=== PATIENT | female | born 2005 | race Caucasian/White ===

== ENCOUNTER 2024-04-16 10:54 | Outpatient (CLI) | payer MEDICAID, SELFPAY ==
[2024-04-16 11:51] LABS: HCG,Quantitative 77 mIU/ml (0-5.42)
[2024-04-17 08:28] LABS: Progesterone 15.4 ng/mL (.)
== END 2024-04-16 23:59 | disposition home or self-care (01) ==
PROVIDERS: PCP Pediatrics; Visit Provider Obstetrics & Gynecology
DX: O26.891 Other specified pregnancy related conditions, first trimester (principal); Z3A.01 Less than 8 weeks gestation of pregnancy
CPT/HCPCS: 36415; 84144; 84702

== ENCOUNTER 2024-04-18 08:45 | Outpatient (CLI) | payer MEDICAID, SELFPAY ==
[2024-04-18 09:44] LABS: HCG,Quantitative 199 mIU/ml (0-5.42)
== END 2024-04-18 23:59 | disposition home or self-care (01) ==
LOC: LAB 08:45
PROVIDERS: PCP Pediatrics; Visit Provider Obstetrics & Gynecology
DX: Z32.00 Encounter for pregnancy test, result unknown (principal)
CPT/HCPCS: 36415; 84702

== ENCOUNTER 2024-05-06 10:44 | Outpatient (CLI) | payer MEDICAID, SELFPAY ==
[2024-05-06 12:08] LABS: HCG,Quantitative 2080 mIU/ml (0-5.42)
[2024-05-07 08:18] LABS: Progesterone 1.7 ng/mL (.)
== END 2024-05-06 23:59 | disposition home or self-care (01) ==
LOC: LAB 10:45
PROVIDERS: PCP Pediatrics; Visit Provider Obstetrics & Gynecology
DX: O20.9 Hemorrhage in early pregnancy, unspecified (principal); Z3A.01 Less than 8 weeks gestation of pregnancy
CPT/HCPCS: 36415; 84144; 84702; 86900; 86901

== ENCOUNTER 2024-05-07 08:48 | Outpatient (CLI) | payer MEDICAID, SELFPAY ==
--- NOTE | 2024-05-07 09:03 | US_ITS ---
PROCEDURE: US OB <= 14 WEEKS FETUS CLINICAL INDICATION: vaginal bleeding in early COMPARISON: No exams were available for comparison FINDINGS: Transvaginal sonographic images of the pelvis were obtained. From her last menstrual period she is 7weeks 4days. An intrauterine gestational sac is absent. heart tones are absent. Yolk sac is not seen. In the lower uterine segment and cervix there appears to be tissue as well as blood clot. The right ovary is seen and appears normal. The left ovary is seen and appears normal. There are multiple small follicles within the left ovary. There is no fluid in the cul-de-sac. IMPRESSION: 1. Likely missed with tissue and blood clot in the lower uterine segment and cervix. 2. A gestational sac is not seen. 3. Both ovaries are seen and appear normal. 4. No fluid in the cul-de-sac. Dictated by: Michael Freed MD 05/07/2024 11:16 Michael Freed MD in OV 05/07/2024 11:16
== END 2024-05-07 23:59 | disposition home or self-care (01) ==
LOC: RAD 08:49
PROVIDERS: PCP Obstetrics & Gynecology; Visit Provider Obstetrics & Gynecology
DX: O20.9 Hemorrhage in early pregnancy, unspecified (principal); Z3A.01 Less than 8 weeks gestation of pregnancy
CPT/HCPCS: 76801

== ENCOUNTER 2024-05-08 08:49 | Outpatient (CLI) | payer MEDICAID, SELFPAY ==
[2024-05-08 11:52] LABS: HCG,Quantitative 389 mIU/ml (0-5.42)
== END 2024-05-08 23:59 | disposition home or self-care (01) ==
LOC: LAB 08:50
PROVIDERS: PCP Pediatrics; Visit Provider Nurse Practitioner Obstetrics & Gynecology
DX: O20.9 Hemorrhage in early pregnancy, unspecified (principal); Z3A.01 Less than 8 weeks gestation of pregnancy
CPT/HCPCS: 36415; 84702

== ENCOUNTER 2024-05-09 11:30 | Outpatient (CLI) | payer MEDICAID, SELFPAY ==
[2024-05-09 12:05] LABS: Basophils # 0.1 K/mm3 (0-0.2); Basophils % 0.6 % (0.1-2.0); Eosinophils # 0.1 K/mm3 (0.0-0.4); Hematocrit 39.4 % (37.0-47.0); Hemoglobin 12.9 g/dL (12.2-16.2); Lymphocytes # 2.1 K/mm3 (0.7-4.5); Lymphocytes % 25.3 % (10-50); Mean Corpuscular HGB Conc 32.7 g/dL (31.8-35.4); Mean Corpuscular Hemoglobin 30.2 pg (27.0-31.2); Mean Corpuscular Volume 92.2 fl (81-99); Mean Platelet Volume 9.1 fl (7.4-10.4); Monocytes # 0.5 K/mm3 (0.1-1.0); Monocytes % 5.5 % (1.7-9.3); Neutrophils # 5.5 K/mm3 (1.8-7.8); Neutrophils % 67.5 % (37.0-80.0); Platelet Count 232 K/mm3 (142-424); Red Blood Count 4.28 M/mm3 (4.20-5.40); Red Cell Distribution Width 13.8 % (11.5-17.5); White Blood Count 8.2 K/mm3 (4.5-13.0)
== END 2024-05-09 23:59 | disposition home or self-care (01) ==
PROVIDERS: PCP Pediatrics; Visit Provider Obstetrics & Gynecology
DX: O03.9 Complete or unspecified spontaneous abortion without complication (principal)
CPT/HCPCS: 36415; 85025

== ENCOUNTER 2025-06-10 12:16 | Outpatient (CLI) | payer MEDICAID, SELFPAY ==
--- OUTSIDE RECORDS SUMMARY | 2025-05-07 09:30 | XMS_ITS | Encounter Summary ---
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 Name Role Phone Ventura Corona MD Primary Care Provider [phone] Reason for Visit * Reason Comments Annual Exam Encounter Details Date Type Department Care Team (Late st Contact Info) Description 05/07/2025 9:30 AM EDT Office Visit [facility] [address] [place] [address] Ventura Corona MD [address] [place] [address] [place] [address] Encounter for general adult medical examination with abnormal findings (Primary Dx); Anxiety and depression; Class 1 obesity due to excess calories without serious comorbidity with body mass index (BMI) of 33.0 to 33.9 in adult; Other fatigue; Seasonal allergic rhinitis due to pollen Social History Tobacco Use Types Packs/Day Years Used Date Smoking Tobacco: Never Smokeless Tobacco: Never Tobacco Cessation:Counseling Given: No Alcohol Use Standard Drinks/Week Comments Never 0 (1 standard drink = 0.6 oz pur e alcohol) AUDIT-C Answer Date Recorded Q1: How often do you have a drink containing alcohol? Never 11/03/2022 Q2: How many drinks containi ng alcohol do you have on a typical day when you are drinking? Patient does not drink Q3: How often do you have si x or more drinks on one occasion? Never 11/03/2022 PHQ-2 Answer Date Recorded Retired PHQ-9: Brief Depression Severity Measure Score 0 03/08/2023 [employer] Depression Scale Answer Date Recorded Retired [employer] Depression Score 0 12/16/2022 Retired EPD Scale: Thought of Harming Self Unrec ognized value 12/16/2022 Abuse Screen Answer Date Recorded Feels Unsafe at Home or Work/School no 11/03/2022 Feels Threatened by Someone no 10/20 Does Anyone Try to Keep You From Having Contact with Others or Doing Things Outside Your Home? no 11/03/2022 Physical Signs of Abuse Present no 11/03/2022 Housing Stability Answer Date Recorded Current Living Arrangements home 10/20 Potentially Unsafe Housing Conditions Not on marshal e 11/03/2022 Disabilities Answer Date Recorded Difficulty Concentrating, Remembering or Making Decisions no 11/03/2022 Difficulty Managing Errands Independently no 11/03/2022 PHQ-2 Answer Date Recorded Patient Health Questionnaire-2 Score 0 05/07/2025 Comments No Sex and Gender Information Value Date Recorded Sex Assigned at Not on file Legal Sex Female 8:10 AM EDT Gender Identity Not on file Sexual Orientation Not on file 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 Not on file Not on file Not on file documented as of this encounter Last Filed Vital Signs Vital Sign Reading Time Taken Comments Blood Pressure 110/70 05/07/2025 9:36 AM EDT Pulse 79 05/07/2025 9:36 AM EDT Temperature 37 C (98.6 F) 05/07/2025 9:36 AM EDT Respiratory Rate - - Oxygen Saturation 97% 05/07/2025 9:36 AM EDT Inhaled Oxygen Concentration - - Weight 83.6 kg (184 lb 6 oz) 05/07/2025 9:36 AM EDT Height 157.5 cm (5' 2 ) 05/07/2025 9:36 AM EDT Body Mass Index 33.72 05/07/2025 9:36 AM EDT documented in this encounter Functional Status documented as of this encounter Patient Instructions * Patient Instructions* Ventura Corona MD - 05/07/2025 9:30 AM EDT Health Maintenance, Female Adopting a healthy lifestyle and getting preventive care can go a long way to promote health and wellness. Talk with your health care provider about what schedule of regular examinations is right foryou. This is a good chance for you to check in with your provider about disease prevention and staying healthy. In between checkups, there are plenty of things you can do on your own. Experts have done a lot of research about which lifestyle changes and preventive measures are most likely to keep you healthy. Ask your health care provider for more information. Weight and diet Eat a healthy diet Be sure to include plenty of vegetables, fruits, low-fat dairy products, and lean protein. Do not eat a lot of foods high in solid fats, added sugars, or salt. Get regular exercise. This is one of the most important things you can do for your health. Most adults should exercise for at least 150 minutes each week. The exercise should increase your heart rate and make you sweat (moderate-intensity exercise). Most adults should also do strengthening exercises at least twice a week. This is in addition to the moderate-intensity exercise. Maintain a healthy weight Body mass index (BMI) is a measurement that can be used to identify possible weight problems. It estimates body fat based on height and weight. Your health care provider can help determine your BMI and help you achieve or maintain a healthy weight. For females 20 years of age and older: A BMI below 18.5 is considered underweight. A BMI of 18.5 to 24.9 is normal. A BMI of 25 to 29.9 is considered overweight. A BMI of 30 and above is considered obese. Watch levels of cholesterol and blood lipids You should start having your blood tested for lipids and cholesterol at 20 years of age, then have this test every 5 years. You may need to have your cholesterol levels checked more often if: Your lipid or cholesterol levels are high. You are older than 50 years of age. You are at high risk for heart disease. Cancer screening Lung Cancer Lung cancer screening is recommended for adults 55-80 years old who are at high risk for lung cancer because of a history of smoking. A yearly low-dose CT scan of the lungs is recommended for people who: Currently smoke. Have quit within the past 15 years. Have at least a [id number] history of smoking. A pack year is smoking an average of one pack of cigarettes a day for 1 year. Yearly screening should continue until it has been 15 years since you quit. Yearly screening should stop if you develop a health problem that would prevent you from having lung cancer treatment. Breast Cancer Practice breast self-awareness. This means understanding how your breasts normally appear and feel. It also means doing regular breast self-exams. Let your health care provider know about any changes, no matter how small. If you are in your 20s or 30s, you should have a clinical breast exam (CBE) by a health care provider every 1-3 years as part of a regular health exam. If you are 40 or older, have a CBE every year. Also consider having a breast X- ray (mammogram) every year. If you have a family history of breast cancer, talk to your health care provider about genetic screening. If you are at high risk for breast cancer, talk to your health care provider about having an MRI and a mammogram every year. Breast cancer gene (BRCA) assessment is recommended for women who have family members with BRCA-related cancers. BRCA-related cancers include: Breast. Ovarian. Tubal. Peritoneal cancers. Results of the assessment will determine the need for genetic counseling and BRCA1 and BRCA2 testing. Cervical Cancer Your health care provider may recommend that you be screened regularly for cancer of the pelvic organs (ovaries, uterus, and vagina). This screening involves a pelvic examination, including checking for microscopic changes to the surface of your cervix (Pap test). You may be encouraged to have thisscreening done every 3 years, beginning at age 21. For women ages 30-65, health care providers may recommend pelvic exams and Pap testing every 3 years, or they may recommend the Pap and pelvic exam, combined with testing for human papilloma virus (HPV), every 5 years. Some types of HPV increase your risk of cervical cancer. Testing for HPV may also be done on women of any age with unclear Pap test results. Other health care providers may not recommend any screening for non women who are considered low risk for pelvic cancer and who do not have symptoms. Ask your health care provider if a screening pelvic exam is right for you. If you have had past treatment for cervical cancer or a condition that could lead to cancer, you need Pap tests and screening for cancer for at least 20 years after your treatment. If Pap tests have been discontinued, your risk factors (such as having a new sexual partner) need to be reassessed to determine if screening should resume. Some women have medical problems that increase the chance of getting cervical cancer. In these cases, your health care provider may recommend more frequent screening and Pap tests. Colorectal Cancer This type of cancer can be detected and often prevented. Routine colorectal cancer screening usually begins at 50 years of age and continues through 75 years of age. Your health care provider may recommend screening at an earlier age if you have risk factors for colon cancer. Your health care provider may also recommend using home test kits to check for hidden blood in the stool. A small camera at the end of a tube can be used to examine your colon directly (sigmoidoscopy or colonoscopy). This is done to check for the earliest forms of colorectal cancer. Routine screening usually begins at age 50. Direct examination of the colon should be repeated every 5-10 years through 75 years of age. However, you may need to be screened more often if early forms of precancerous polyps or small growths arefound. Skin Cancer Check your skin from head to toe regularly. Tell your health care provider about any new moles or changes in moles, especially if there is a change in a mole's shape or color. Also tell your health care provider if you have a mole that is larger than the size of a pencil eraser. Always use sunscreen. Apply sunscreen liberally and repeatedly throughout the day. Protect yourself by wearing long sleeves, pants, a wide-brimmed hat, and sunglasses whenever you are outside. Heart disease, diabetes, and high blood pressure High blood pressure causes heart disease and increases the risk of stroke. High blood pressure is more likely to develop in: People who have blood pressure in the high end of the normal range (130-139/85-89 mm Hg). People who are overweight or obese. People who are . If you are 18-39 years of age, have your blood pressure checked every 3-5 years. If you are 40 years of age or older, have your blood pressure checked every year. You should have your blood pressure measured twice--once when you are at a hospital or clinic, and once when you are not at a hospital or clinic. Record the average of the two measurements. To check your blood pressure when you are not at a hospital or clinic, you can use: An automated blood pressure machine at a pharmacy. A home blood pressure monitor. If you are between 55 years and 79 years old, ask your health care provider if you should take aspirin to prevent strokes. Have regular diabetes screenings. This involves taking a blood sample to check your fasting blood sugar level. If you are at a normal weight and have a low risk for diabetes, have this test once every three years after 45 years of age. If you are overweight and have a high risk for diabetes, consider being tested at a younger age or more often. Preventing infection Hepatitis B If you have a higher risk for hepatitis B, you should be screened for this virus. You are considered at high risk for hepatitis B if: You were born in a country where hepatitis B is common. Ask your health care provider which countries are considered high risk. Your parents were born in a high-risk country, and you have not been immunized against hepatitis B (hepatitis B vaccine). You have HIV or AIDS. You use needles to inject street drugs. You live with someone who has hepatitis B. You have had sex with someone who has hepatitis B. You get hemodialysis treatment. You take certain medicines for conditions, including cancer, organ transplantation, and autoimmune conditions. Hepatitis C Blood testing is recommended for: Everyone born from 1945 through 1965. Anyone with known risk factors for hepatitis C. Sexually transmitted infections (STIs) You should be screened for sexually transmitted infections (STIs) including gonorrhea and chlamydiaif: You are sexually active and are younger than 24 years of age. You are older than 24 years of age and your health care provider tells you that you are at risk forthis type of infection. Your sexual activity has changed since you were last screened and you are at an increased risk for chlamydia or gonorrhea. Ask your health care provider if you are at risk. If you do not have HIV, but are at risk, it may be recommended that you take a prescription medicine daily to prevent HIV infection. This is called pre- exposure prophylaxis (PrEP). You are consideredat risk if: You are sexually active and do not regularly use condoms or know the HIV status of your partner(s). You take drugs by injection. You are sexually active with a partner who has HIV. Talk with your health care provider about whether you are at high risk of being infected with HIV. If you choose to begin PrEP, you should first be tested for HIV. You should then be tested every 3 months for as long as you are taking PrEP. If you are premenopausal and you may become , ask your health care provider about preconception counseling. If you may become , take 400 to 800 micrograms (mcg) of folic acid every day. If you want to prevent , talk to your health care provider about control (contraception). Osteoporosis and menopause Osteoporosis is a disease in which the bones lose minerals and strength with aging. This can resultin serious bone fractures. Your risk for osteoporosis can be identified using a bone density scan. If you are 65 years of age or older, or if you are at risk for osteoporosis and fractures, ask yourhealth care provider if you should be screened. Ask your health care provider whether you should take a calcium or vitamin D supplement to lower your risk for osteoporosis. Menopause may have certain physical symptoms and risks. Hormone replacement therapy may reduce some of these symptoms and risks. Talk to your health care provider about whether hormone replacement therapy is right for you. Follow these instructions at home: Schedule regular health, dental, and eye exams. Stay current with your immunizations. Do not use any tobacco products including cigarettes, chewing tobacco, or electronic cigarettes. If you are , do not drink alcohol. If you are , limit how much and how often you drink alcohol. Limit alcohol intake to no more than 1 drink per day for non women. One drink equals 12 ounces of beer, 5 ounces of wine, or 1?? ounces of hard liquor. Do not use street drugs. Do not share needles. Ask your health care provider for help if you need support or information about quitting drugs. Tell your health care provider if you often feel depressed. Tell your health care provider if you have ever been abused or do not feel safe at home. This information is not intended to replace advice given to you by your health care provider. Make sure you discuss any questions you have with your health care provider. Document Released: 05/21/2012 Document Revised: 04/13/2017 Document Reviewed: 08/09/2016 [employer] Interactive Patient Education ?? 2018 [place]. documented in this encounter Progress Notes * Ventura Corona MD - 05/07/2025 10:57 AM EDTAssociated Problem(s): Seasonal allergic rhinitis due to pollen Seasonal pattern of allergies typically flaring more spring and summer than fall, less in the winter. Good response to Claritin and Flonase as needed, using currently with benefit and not typically having breakthrough symptoms. We could consider adding montelukast in the future for any breakthroughsymptoms. Additional benefit of saline spray, nasal flushing. Advise concerns. * Ventura Corona MD - 05/07/2025 10:57 AM EDTAssociated Problem(s): Encounter for general adult medical examination with abnormal findings No cardiac problems known. Mild intermittent asthma. Childhood vaccinations up-to-date and given with notable Tdap given 08/16/2022. Screening blood work 02/05/2025, with additional 03/22/2022 negative HIV and hepatitis C virus screening. 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 * Ventura Corona MD - 05/07/2025 10:55 AM EDTAssociated Problem(s): Class 1 obesity due to excess calories without serious comorbidity with bodymass index (BMI) of 32.0 to 32.9 in adult Gradually increasing weight over the preceding year, with another 7 pound weight gain since her visit a few months ago despite efforts to eat healthier and be more active. She feels it is hard to maintain. GLP-1 class discussed but is not covered by insurance, phentermine discussed and now that sheis having control of her mood and anxiety she would like to proceed. Initiate phentermine 37.5 mg and half tablet in the morning half tablet midday, caution jitteriness, anxiety exacerbation. Use forup to 3 maybe 4 months depending how she responds, with monthly follow-ups. Reinforced importance of healthy diet, exercise and weight loss. Notable for reassuring blood work from 02/05/2025 includingnormal TSH. Follow-up in 1 month, sooner as needed. * Ventura Corona MD - 05/07/2025 10:54 AM EDTAssociated Problem(s): Anxiety and depression History of more anxiety type symptoms, but as of 02/05/2025 some gradual increase in more anxiety than depressive type symptoms, but becoming bothersome in life. Some associate fatigue felt related the same with reassuring blood work on 02/05/2025. She was interested in medicine, previously benefit with Celexa but we discussed that Lexapro might give her even further benefit, but she would be interested in Lexapro. Initiation on 02/05/2025 Lexapro 10 mg daily, which she tolerated well without any side effects. She is pleased with how she is doing as of 05/07/2025 we will continue unchanged. Continue lifestyle modifications to benefit mood including regular exercise, pursuit of enjoyable activities, improved communication and she has pending counseling at the end of the month. Reassess at follow-up visit. * Ventura Corona MD - 05/07/2025 9:34 AM EDTAssociated Problem(s): Other fatigue Nonspecific fatigue more of a burned-out sensation , not a muscular fatigue and not a sleepiness pattern. [place] it be most likely related to her ongoing mood difficulties, discussed as per that assessment plan. Nonetheless reassuring evaluation for screening blood work on 02/05/2025 including notably normal CBC for screening of anemia, and also normal TSH for thyroid function. Such as fatigue is felt more related to mood difficulties which is improving with treatment. * Ventura Corona MD - 05/07/2025 9:30 AM EDT Images from the original note were not included. Female Physical Note Date: 05/07/2025 Patient Name: Jayson Adler : 2005 Chief Complaint Patient presents with Annual Exam History of Present Illness: Jayson Adler is a 20 y.o. female who is here today for theirannual health maintenance and physical. Discussed multimedical problems and other new concerns. Regarding anxiety more so than depressive symptoms, resumption of medicine with Lexapro 10 mg daily a few months ago on 02/05/2025 and she has seen good benefit, she feels more lax, handle stressors better just generally is feeling better. No SI/HI. She would like to continue unchanged. Previous sense of fatigue is also improving with his treatment, laboratory vesication from 02/05/2025 reassuring. Allergies are flaring up a bit but she is using her Claritin and Flonase with benefit. Regarding obesity pattern despite attempts to eat healthier and be more active, she still struggling is actually hadabout 7 pound weight gain since her last visit. We discussed previously phentermine but wanted to hold off on until anxiety and depression are better controlled and are doing better now she would be interested in pursuing. Subjective Review of Systems Past Medical History, Social History, Family History and Care Team were all reviewed with patient and updated as appropriate. Current Outpatient Medications: escitalopram (Lexapro) 10 MG tablet, Take 1 tablet by mouth Daily., Disp: 90 tablet, Rfl: 1 fluticasone (FLONASE) 50 MCG/ACT nasal spray, Administer 2 sprays into the nostril(s) as directed by provider Daily., Disp: 15.8 g, Rfl: 3 loratadine (Claritin) 10 MG tablet, Take 1 tablet by mouth Daily., Disp: 30 tablet, Rfl: 1 phentermine (Adipex-P) 37.5 MG tablet, Take 0.5 tablets by mouth 2 (Two) Times a Day., Disp: 30 tablet, Rfl: 0 Allergies Allergen Reactions Sulfa Antibiotics Hives Health Maintenance Summary Current Care Gaps COVID-19 Vaccine () Overdue since 07/21/2024 03/08/2023 Postponed until 04/17/2023 by Anitra Gallegos MA (Pending event) 12/07/2021 Imm Admin: COVID-19 (PFIZER) Purple Cap Monovalent 10/25/2021 Imm Admin: COVID-19 (PFIZER) Purple Cap Monovalent CHLAMYDIA SCREENING (Yearly) Overdue since 02/05/2025 02/06/2024 Chlamydia trachomatis, JULIENNE component of Chlamydia trachomatis, Neisseria gonorrhoeae, Trichomonas vaginalis, PCR - Swab, Cervix 08/01/2022 Chlamydia trachomatis, JULIENNE component of NuSwab VG+ - Swab, Vagina 03/22/2022 Chlamydia trachomatis, JULIENNE component of Chlamydia trachomatis, Neisseria gonorrhoeae, PCR w/ confirmation - Urine, Urine, Clean Catch 01/27/2022 Chlamydia trachomatis, JULIENNE component of Chlamydia trachomatis, Neisseria gonorrhoeae, PCR w/ confirmation - Swab, Vagina 10/25/2021 Chlamydia trachomatis, JULIENNE component of Chlamydia trachomatis, Neisseria gonorrhoeae, Trichomonas vaginalis, PCR - , Cervix Only the first 5 history entries have been loaded, but more history exists. ANNUAL PHYSICAL (Yearly) Never done 03/08/2023 Postponed until 06/07/2023 by Anitra Gallegos MA (Pending event) MENINGOCOCCAL B VACCINE (1 of 2 - Standard) Never done No completion, postpone, or frequency change history exists for this topic. PAP SMEAR (Every 3 Years) Never done No completion, postpone, or frequency change history exists for this topic. Upcoming INFLUENZA VACCINE (Yearly - May to January) Next due on 05/20/2025 No completion, postpone, or frequency change history exists for this topic. LIPID PANEL (Yearly) Next due on 02/05/2026 02/05/2025 Lipid Panel TDAP/TD VACCINES (3 - Td or Tdap) Next due on 08/16/2032 08/16/2022 Imm Admin: Tdap 04/21/2015 Imm Admin: Tdap Completed or No Longer Recommended HEPATITIS C SCREENING Completed 03/22/2022 Hep C Virus Ab component of Obstetric Panel HPV VACCINES (Series Information) Completed 03/08/2023 Postponed until 03/08/2023 by Anitra Gallegos MA (Pending event) 01/03/2018 Imm Admin: Hpv9 06/30/2017 Imm Admin: Hpv9 Pneumococcal Vaccine 0-49 (Series Information) Aged Out No completion, postpone, or frequency change history exists for this topic. MENINGOCOCCAL VACCINE (Series Information) Aged Out 03/08/2023 Postponed until 03/08/2023 by Anitra Gallegos MA (Pending event) 04/21/2015 Imm Admin: MCV4 Unspecified Immunization History Administered Date(s) Administered COVID-19 ([employer]) Purple Cap Monovalent 10/25/2021, 12/07/2021 DTaP, Unspecified 2004, 2004, 2004, 05/09/2007, 06/02/2008 Hep A, 2 Dose 06/30/2017, 01/03/2018 Hep B, Adolescent or Pediatric 2004, 2004, 2004 HiB 2004, 2004, 2004 Hpv9 06/30/2017, 01/03/2018 IPV 2004, 2004, 03/16/2005, 06/02/2008 MCV4 Unspecified 04/21/2015 MMR 05/09/2007, 06/02/2008 Tdap 04/21/2015, 08/16/2022 Varicella 05/09/2007, 06/02/2008 Colorectal Screening: Last Completed Colonoscopy This patient has no relevant Health Maintenance data. Pap: Last Completed Pap Smear This patient has no relevant Health Maintenance data. Mammogram: Last Completed Mammogram This patient has no relevant Health Maintenance data. CT for Smoker (Age 50-80, 20 pk yr): Not applicable Bone Density/DEXA (Age 65 or high risk): Not applicable. Hep C (Age 18-79 once): Negative on 03/22/2022 HIV (Age 15-65 once): Negative on 03/22/2022 A1c: Hemoglobin A1C Date Value Ref Range Status 02/05/2025 5.1 4.8 - 5.6 % Final Comment: Prediabetes: 5.7 - 6.4 Diabetes: >6.4 Glycemic control for adults with diabetes: <7.0 Lipid panel: No results found for: LIPIDEXCLUSI The ASCVD Risk score ([place] DK, et al., 2019) failed to calculate for the following reasons: The 2019 ASCVD risk score is only valid for ages 40 to 79 Tobacco Use: Low Risk (05/07/2025) Patient History Smoking Tobacco Use: Never Smokeless Tobacco Use: Never Passive Exposure: Not on file Social History Substance and Sexual Activity Alcohol Use Never Social History Substance and Sexual Activity Drug Use Never Diet/Physical activity: Attempts to eat healthier and be active, she is doing quite well with the diet but exercise is a bit of a challenge but still making efforts to improve but unfortunately no weight loss and actually weight gain Social History Substance and Sexual Activity Sexual Activity Yes Partners: Male control/protection: None No LMP recorded (lmp unknown). Depression: PHQ-2 Depression Screening PHQ-9 Depression Screening Little interest or pleasure in doing things? Not at all Feeling down, depressed, or hopeless? Not at all PHQ-2 Total Score 0 Trouble falling or staying asleep, or sleeping too much? Feeling tired or having little energy? Poor appetite or overeating? Feeling bad about yourself - or that you are a failure or have let yourself or your family down? Trouble concentrating on things, such as reading the newspaper or watching television? Moving or speaking so slowly that other people could have noticed? Or the opposite - being so fidgety or restless that you have been moving around a lot more than usual? Thoughts that you would be better off , or of hurting yourself in some way? PHQ-9 Total Score If you checked off any problems, how difficult have these problems made it for you to do your work,take care of things at home, or get along with other people? Not difficult at all Intimate partner violence: (Screen on initial visit, women, women with injuries, older adult with injury or evidence of neglect): Violence can be a problem in many people's lives, so I now ask every patient about trauma or abuse they may have experienced in a relationship. Stress/Safety - Do you feel safe in your relationship? Afraid/Abused - Have you ever been in a relationship where you were threatened, hurt, or afraid? Friend/Family - Are your friends aware you have been hurt? Emergency Plan - Do you have a safe place to go and the resources you need in an emergency? Osteoporosis: Ost menopausal women < 65 with RF (advancing age, previous fracture, glucocorticoid therapy, parental hip fracture, low body weight, current cigarette smoking, excessive alcohol consumption, rheumatoid arthritis, secondary osteoporosis [hypogonadism/premature menopause, malabsorption, chronic liver disease, IBD]). All women 65 or older Objective Physical Exam: Vitals: 05/07/25 0936 BP: 110/70 BP Location: Right arm Patient Position: Sitting Cuff Size: Adult Pulse: 79 Temp: 98.6 ??F (37 ??C) TempSrc: Temporal SpO2: 97% Weight: 83.6 kg (184 lb 6 oz) Height: 157.5 cm (62 ) PainSc: 0-No pain Facility age limit for growth %karli is 20 years. Body mass index is 33.72 kg/m??. Physical Exam Constitutional: General: She is not in acute distress. Appearance: Normal appearance. She is obese. She is not ill-appearing, toxic- appearing or diaphoretic. HENT: Head: Normocephalic and atraumatic. Right Ear: Tympanic membrane, ear canal and external ear normal. Left Ear: Tympanic membrane, ear canal and external ear normal. Nose: Rhinorrhea present. Comments: Mild clear rhinorrhea, pale mucosa Mouth/Throat: Mouth: Mucous membranes are moist. Pharynx: Oropharynx is clear. No oropharyngeal exudate or posterior oropharyngeal erythema. Eyes: Extraocular Movements: Extraocular movements intact. Conjunctiva/sclera: Conjunctivae normal. Pupils: Pupils are equal, round, and reactive to light. Neck: Vascular: No carotid bruit. Cardiovascular: Rate and Rhythm: Normal rate and regular rhythm. Pulses: Normal pulses. Heart sounds: Normal heart sounds. No murmur heard. No friction rub. No gallop. Pulmonary: Effort: Pulmonary effort is normal. No respiratory distress. Breath sounds: Normal breath sounds. No stridor. No wheezing. Abdominal: General: Abdomen is flat. Bowel sounds are normal. There is no distension. Palpations: Abdomen is soft. There is no mass. Tenderness: There is no abdominal tenderness. There is no guarding or rebound. Hernia: No hernia is present. Genitourinary: Comments: Declined by patient as she plans to obtain through gynecology Musculoskeletal: Cervical back: Neck supple. No tenderness. Right lower leg: No edema. Left lower leg: No edema. Lymphadenopathy: Cervical: No cervical adenopathy. Skin: General: Skin is warm and dry. Capillary Refill: Capillary refill takes less than 2 seconds. Findings: No rash. Neurological: General: No focal deficit present. Mental Status: She is alert and oriented to person, place, and time. Mental status is at baseline. Motor: No weakness. Gait: Gait normal. Psychiatric: Mood and Affect: Mood normal. Behavior: Behavior normal. Thought Content: Thought content normal. Judgment: Judgment normal. Procedures Assessment / Plan Assessment/Plan: Diagnoses and all orders for this visit: 1. Encounter for general adult medical examination with abnormal findings (Primary) Assessment & Plan: No cardiac problems known. Mild intermittent asthma. Childhood vaccinations up-to-date and given with notable Tdap given 08/16/2022. Screening blood work 02/05/2025, with additional 03/22/2022 negative HIV and hepatitis C virus screening. 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 2. Anxiety and depression Assessment & Plan: History of more anxiety type symptoms, but as of 02/05/2025 some gradual increase in more anxiety than depressive type symptoms, but becoming bothersome in life. Some associate fatigue felt related the same with reassuring blood work on 02/05/2025. She was interested in medicine, previously benefit with Celexa but we discussed that Lexapro might give her even further benefit, but she would be interested in Lexapro. Initiation on 02/05/2025 Lexapro 10 mg daily, which she tolerated well without any side effects. She is pleased with how she is doing as of 05/07/2025 we will continue unchanged. Continue lifestyle modifications to benefit mood including regular exercise, pursuit of enjoyable activities, improved communication and she has pending counseling at the end of the month. Reassess at follow-up visit. Orders: - escitalopram (Lexapro) 10 MG tablet; Take 1 tablet by mouth Daily. Dispense: 90 tablet; Refill: 1 3. Class 1 obesity due to excess calories without serious comorbidity with body mass index (BMI) of33.0 to 33.9 in adult Assessment & Plan: Gradually increasing weight over the preceding year, with another 7 pound weight gain since her visit a few months ago despite efforts to eat healthier and be more active. She feels it is hard to maintain. GLP-1 class discussed but is not covered by insurance, phentermine discussed and now that sheis having control of her mood and anxiety she would like to proceed. Initiate phentermine 37.5 mg and half tablet in the morning half tablet midday, caution jitteriness, anxiety exacerbation. Use forup to 3 maybe 4 months depending how she responds, with monthly follow-ups. Reinforced importance of healthy diet, exercise and weight loss. Notable for reassuring blood work from 02/05/2025 includingnormal TSH. Follow-up in 1 month, sooner as needed. Orders: - phentermine (Adipex-P) 37.5 MG tablet; Take 0.5 tablets by mouth 2 (Two) Times a Day. Dispense: 30 tablet; Refill: 0 4. Other fatigue Assessment & Plan: Nonspecific fatigue more of a burned-out sensation , not a muscular fatigue and not a sleepiness pattern. [place] it be most likely related to her ongoing mood difficulties, discussed as per that assessment plan. Nonetheless reassuring evaluation for screening blood work on 02/05/2025 including notably normal CBC for screening of anemia, and also normal TSH for thyroid function. Such as fatigue is felt more related to mood difficulties which is improving with treatment. 5. Seasonal allergic rhinitis due to pollen Assessment & Plan: Seasonal pattern of allergies typically flaring more spring and summer than fall, less in the winter. Good response to Claritin and Flonase as needed, using currently with benefit and not typically having breakthrough symptoms. We could consider adding montelukast in the future for any breakthroughsymptoms. Additional benefit of saline spray, nasal flushing. Advise concerns. Vaccine Counseling: Healthcare Maintenance: Counseling provided based on age appropriate USPSTF guidelines. [email or web address] voices understanding and acceptance of this advice and will call back with any further questions or concerns. AVS with preventive healthcare tips printed for patient. Follow Up: Return in about 1 month (around 06/06/2025) for Next scheduled follow up. 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
--- OUTSIDE RECORDS SUMMARY | 2025-06-10 12:19 | XMS_ITS | Clinical Summary ---
[facility] Address [address] [place] [address] Care Team Providers Care Produce Sorter Name Role Phone Ventura Corona MD Primary Care Provider [phone] Allergies Active Allergy Reactions Criticality Noted Date Comments Sulfa Antibiotics Hives Medium 04/28/2019 Medications loratadine (Claritin) 10 MG tabletIndication s:Seasonal allergic rhinitis due to pollen Take 1 tablet by mouth Daily. 30 tablet 1 5 Active fluticasone (FLONASE) 50 MCG/ACT nasal sprayIndications :Seasonal allergic rhinitis due to pollen Administer 2 sprays into the nostril(s) as directed by provider Daily. 15.8 g 3 5 Active phentermine (Adipex-P) 37.5 MG tabletIndication s:Class 1 obesity due to excess calories without serious comorbidity with body mass index (BMI) of 33.0 to 33.9 in adult Take 0.5 tablets by mouth 2 (Two) Times a Day. 30 tablet 5 Active escitalopram (Lexapro) 10 MG tabletIndication s:Anxiety and depression Take 1 tablet by mouth Daily. 90 tablet 1 5 Active Active Problems Problem Noted Date Diagnosed Date Other fatigue 02/05/2025 Assessment & Plan (05/07/2025 9:34 AM EDT): Nonspecific fatigue more of a burned-out sensation , not a muscular fatigue and not a sleepiness pattern. [employer] it be most likely related to her ongoing mood difficulties, discussed as per that assessment plan. Nonetheless reassuring evaluation for screening blood work on 02/05/2025 including notably normal CBC for screening of anemia, and also normal TSH for thyroid function. Such as fatigue is felt more related to mood difficulties which is improving with treatment. Assessment & Plan (02/05/2025 10:44 AM EDT): Nonspecific fatigue more of a burned-out sensation , not a muscular fatigue and not a sleepiness pattern. [employer] it be most likely related to her ongoing mood difficulties, discussed as per that assessment plan. Nonetheless we will check CBC for screening of anemia, and also TSH for thyroid function. Management per results Class 1 obesity due to exces s calories without serious comorbidity with body mass index (BMI) of 32.0 to 32.9 in adult 02/05/2025 Assessment & Plan (05/07/2025 10:55 AM EDT): Gradually increasing weight over the preceding year, with another 7 pound weight gain since her visit a few months ago despite efforts to eat healthier and be more active. She feels it is hard to maintain. GLP-1 class discussed but is not covered by insurance, phentermine discussed and now that she is having control of her mood and anxiety she would like to proceed. Initiate phentermine 37.5 mg and half tablet in the morning half tablet midday, caution jitteriness, anxiety exacerbation. Use for up to 3 maybe 4 months depending how she responds, with monthly follow-ups. Reinforced importance of healthy diet, exercise and weight loss. Notable for reassuring blood work from 02/05/2025 including normal TSH. Follow-up in 1 month, sooner as needed. Assessment & Plan (02/05/2025 10:44 AM EDT): Modest increasing weight over the last year, increased by 15 pounds coinciding with less activity level, some slack in diet, partly exacerbated by stressors. GLP-1 class discussed but is not covered by insurance, phentermine discussed as an option but until we get her mood under better control I would like to hold off on that but we might reconsider at follow-up visit. Reinforced importance of healthy diet, exercise and weight loss. We will also check TSH to ensure thyroid not may not be a contributing factor. Advise concerns Anxiety and depression 02/05/2025 Assessment & Plan (05/07/2025 10:54 AM EDT): History of more anxiety type symptoms, but [...] of the month. Reassess at follow-up visit. Assessment & Plan (02/05/2025 10:43 AM EDT): Some history of more anxiety type symptoms which had generally been doing better over the last 6 months a year with some gradual increase in more anxiety and depressive type symptoms which are more modest but starting become more bothersome. Some associate fatigue it is felt to be in large part mood related. No SI/HI. She is interested in medicine, previously well with Celexa but we discussed that Lexapro might give her even further benefit, but she would be interested in Lexapro. Initiate Lexapro 10 mg daily, caution fogginess, headache, etc. Initiate lifestyle modifications to benefit mood including regular exercise, pursuit of enjoyable activities, improved communication and she has pending counseling at the end of the month. Reassess at 2-week follow-up visit, sooner as needed. Encounter for general adult medical examination with abnormal findings 02/04/2025 Overview (02/04/2025): No cardiac problems known. Mild intermittent asthma. Normal growth and development. Mild seasonal allergic rhinitis. 10-year-old vaccinations given at [facility], including two-part hepatitis A series. Also to prior HPV series. Patient only with 1 meningococcal vaccine. BMI between 90 and 95th percentile for age on 04/16/2015, consistent with childhood obesity strep pharyngitis 02/12/2016. UTI/cystitis 04/22/2019. Assessment & Plan (05/07/2025 11:00 AM EDT): No cardiac problems known. Mild intermittent asthma. Childhood vaccinations up-to-date and given with notable Tdap given 08/16/2022. Screening blood work 02/05/2025, with additional 03/22/2022 negative HIV and hepatitis C virus screening. Patient is planning to schedule Pap smear through her luster applicator at soonest convenience. Right ovarian cyst 03/29/2023 Overview (03/29/2023): Ultrasound 02/06/2023 with 2.5 cm right ovarian cyst. Probable functional cyst. Right lower quadrant abdominal pain 03/29/2023 Overview (03/29/2023): Right lower quadrant pain that was worse with jumping. Peers to have resolved. Need ultrasound if pain recurs. Seasonal allergic rhinitis due to pollen 023 Assessment & Plan (05/07/2025 10:57 AM EDT): Seasonal pattern of allergies typically flaring more spring and summer than fall, less in the winter. Good response to Claritin and Flonase as needed, using currently with benefit and not typically having breakthrough symptoms. We could consider adding montelukast in the future for any breakthrough symptoms. Additional benefit of saline spray, nasal flushing. Advise concerns. Assessment & Plan (02/05/2025 10:45 AM EDT): Seasonal pattern of allergies that flare here and there, starting to flareup little bit with the spring season. Continue Claritin I will add, and I will add Flonase 2 sprays per nostril daily use both together for next couple weeks, then as needed. Additional benefit of saline spray, nasal flushing. Advise concerns. Assessment & Plan (03/08/2023 11:37 AM EDT): Negative COVID, Flu and strep testing in office today. Advised symptoms management with initiation of daily claritin and flonase. Also advised use of cool mist humdifier to assist with nasal congestion. Resolved Problems Problem Noted Date Diagnosed Date Resolved Date IUD check up 01/11/2023 03/15/2024 Overview (01/11/2023): Mirena iUD insertion 01/11/2023 Due for removal 12/2030 Encounter for supervision of normal first in first trimester 11/21/2022 12/16/2022 11/04/2022 12/16/2022 Failure to progress in labor 11/04/2022 02/06/2023 Delivery by section using transverse incision of lower segment of uterus 11/04/202201/19 Pelvic inadequacy in 11/04/2022 02/06/2023 Encounter for supervision of normal first in third trimester 09/20/2022 12/16/2022 Third trimester 09/12/2022 Pruritus 09/12/2022 12/16/2022 08/27/2022 11/01/2022 23 weeks gestation of 08/06/2022 08/16/2022 Echogenic focus of heart of fetus affecting antepartum care of mother, fetus 1 06/20/202212/16 Overview (09/12/2022): Resolved by 32wk 15 weeks gestation of 05/20/2022 08/16/2022 care, subsequent pr egnancy, first trimester 03/22/2022 11/01/2022 Encounters Date Type Department Care Team Description 05/07/2025 9:30 AM EDT Office Visit [facility] [address] [place] [address] [place] [phone] Ventura Corona MD Encounter for general adult medical examination with abnormal findings (Primary Dx); Anxiety and depression; Class 1 obesity due to excess calories without serious comorbidity with body mass index (BMI) of 33.0 to 33.9 in adult; Other fatigue; Seasonal allergic rhinitis due to pollen 05/07/2025 Travel 04/08/2025 Refill [facility] [address] [place] [address] Ventura Corona MD Anxiety and depression from Last 3 Months Immunizations Immunization Administration Dates Next Due COVID-19 (PFIZER) Purple Cap Monovalent 12/07/2021 DTaP, Unspecified 06/02/2008, 7,2004,2003,2004 Hep A, 2 Dose 01/03/2018,06/30/2017 Hep B, Adolescent or Pediatric 2004,2003,2004 HiB 2004,2004,2004 Hpv9 01/03/2018,06/30/2017 IPV 06/02/2008, 5,2004,2003 MCV4 Unspecified 04/21/2015 MMR 06/02/2008,05/09/2007 Tdap 08/16/2022,04/21/2015 Varicella 06/02/2008,05/09/2007 Family History Medical History Relation Name Comments Cancer Maternal Grandfather Diabetes Maternal Grandfather Stroke Maternal Grandfather Cancer Maternal Grandmother no Diabetes Maternal Grandmother no Stroke Maternal Grandmother no Diabetes Paternal Grandfather rachel nolasco Breast cancer Neg Hx Colon cancer Neg Hx Ovarian cancer Neg Hx Uterine cancer Neg Hx Relation Name Status Comments Brother 1 Alive Father Alive Maternal Grandfather Maternal Grandmother no Mother Alive Paternal Grandfather rachel nolasco Alive Sister 4 Alive Social History Tobacco Use Types Packs/Day Years [...] Brief Depression Severity Measure Score 0 03/08/2023 [place] Depression Scale Answer Date Recorded Retired [place] Depression Score 0 12/16/2022 Retired EPD Scale: [...] file Not on file Not on file Last Filed Vital Signs Vital Sign Reading Time Taken Comments Blood Pressure 110/70 05/07/2025 9:36 AM EDT Pulse 79 05/07/2025 9:36 AM EDT Temperature 37 C (98.6 F) 05/07/2025 9:36 AM EDT Respiratory Rate 18 03/15/2024 9:59 AM EDT Oxygen Saturation 97% 05/07/2025 9:36 AM EDT Inhaled Oxygen Concentration - - Weight 83.6 kg (184 lb 6 oz) 05/07/2025 9:36 AM EDT Height 157.5 cm (5' 2 ) 05/07/2025 9:36 AM EDT Body Mass Index 33.72 05/07/2025 9:36 AM EDT Plan of Treatment Health Maintenance Due Date Last Done Comments MENINGOCOCCAL B VACCINE (1 of 2 - Standard) 2020 COVID-19 Vaccine (3 - season) 2024 12/07/2021, 10/25/2021 CHLAMYDIA SCREENING 02/05/2025 02/06/2024, 08/01/2022, 03/22/2022, Additional history exists Annual Gynecologic Pelvic and Breast Exam 02/06/2025 02/06/2024 PAP SMEAR 2025 INFLUENZA VACCINE 08/20/2025 LIPID PANEL 02/05/2026 02/05/2025 ANNUAL PHYSICAL 05/07/2026 05/07/2025 TDAP/TD VACCINES (3 - Td or Tdap) 08/16/2032 08/16/2022, 04/21/2015 MENINGOCOCCAL VACCINE Aged Out 04/21/2015 No kenzie aamir eligible based on patient's age to complete this topic HPV VACCINES Completed 01/03/2018, 06/30/2017 HEPATITIS C SCREENING Completed 03/22/2022 Pneumococcal Vaccine 0-49 Aged Out No longer eligible based on patient's age to complete this topic Procedures Procedure Name Priority Date/Time Associated Diagnosis Comments SCANNED - LABS 04/10/2025 SCANNED - LABS 04/10/2025 SCANNED - LABS 04/10/2025 SCANNED - IMAGING 04/10/2025 LIPID PANEL Routine 02/05/2025 9:12 AM EDT Mixed hyperlipidemia CHLAMYDIA TRACHOMATIS, NEISSERIA GONORRHOEAE, TRICHOMONAS VAGINALIS, PCR Routine 02/06/2024 12:00 AM EDT Screening for STD (sexually transmitted disease) OBSTETRIC PANEL Routine 03/22/2022 3:24 PM EDT care, subsequent , first trimester from Last 3 Months or Most Recently Relevant to Health Maintenance Results * IMAGING SCANNED (04/10/2025) Anatomical Region Laterality Modality Radiographic Laura ging us Ventura Corona MD IMG DIAGNOSTIC IMAGING ORDERABLE S Final Result * LABS SCANNED (04/10/2025) Only the most recent of3 resultswithin the time period is included. us Ventura Corona MD LAB BLOOD ORDERABLES Final Resul t * Lipid Panel (02/05/2025 9:12 AM EDT) Total Cholesterol 100 100 - 199 mg/dL [facility] Triglycerides 71 0 - 149 mg/dL [facility] HDL Cholesterol 43 >39 mg/dL [facility] VLDL Cholesterol Lucio 15 5 - 40 mg/dL [facility] LDL Chol Calc ([facility]) 42 0 - 99 mg/dL [facility] Blood 02/05/2025 9:12 AM EDT 02/05/2025 Comment:Blood Release to pat i Narrative [facility] (AMBULATORY) - 02/06/2025 8:07 AM EDT Performed at: - [facility] [address] [place] [id number] Human Resources Office Manager: Krunal Lopez PhD, Phone: [phone] Ventura Corona MD LAB BLOOD ORDERABLES Final Resul t Performing Organization Address City/[facility]/ZIP Co de Phone Number [facility] [address] [place] [address], [facility] [address] [place], [place] [id number], [place] [phone] * Chlamydia trachomatis, Neisseria gonorrhoeae, Trichomonas vaginalis, PCR - Swab, Cervix (2:00 AM EDT) Chlamydia trachomatis, JULIENNE Negative Negative [facility] Gonococcus by JULIENNE Negative Negative [facility] Trichomonas vaginosis Negative Negative [facility] Swab Cervix uteri structure / Unknown 02/06/2024 02/06/2024 Comment:Swab Release to keila e [facility] (AMBULATORY) - 02/08/2024 6:14 AM EDT Performed at: [address] [id number] Human Resources Office Manager: Louisa Renteria MD, Phone: [phone] Elise Troy INDUSTRIAL RADIOGRAPHER MICROBIOLOGY - GENERAL ORDERA BLES Final Result Performing Organization Address City/[facility]/ZIP Co de Phone Number [facility] [address] [place] [address], [facility] [address] [place] [address], [place] [phone] * Obstetric Panel (03/22/2022 3:24 PM EDT) Hepatitis B Surface Ag Negative Negative [facility] Hep C Virus Ab <0.1 0.0 - 0.9 s/co ratio [facility] Comment: Negative: < 0.8 Indeterminate: 0.8 - 0.9 Positive: > 0.9 The CDC recommends that a positive HCV antibody result be followed up with a HCV Nucleic Acid Amplification test (037156). RPR Non Reactive Non Reactive [facility] Rubella Antibodies, IgG 8.09 Immune >0.99 index [facility] Comment: Non-immune <0.90 Equivocal 0.90 - 0.99 Immune >0.99 ABO Type O [facility] Rh Factor Positive [facility] Comment: Please note: Prior records for this patient's ABO / Rh type are not available for additional verification. Antibody Screen Negative Negative [facility] WBC 6.3 3.4 - 10.8 x10E3/uL [facility] RBC 4.17 3.77 - 5.28 x10E6/uL [facility] Hemoglobin 12.8 11.1 - 15.9 g/dL [facility] Hematocrit 37.3 34.0 - 46.6 % [facility] MCV 89 79 - 97 fL [facility] MCH 30.7 26.6 - 33.0 pg [facility] MCHC 34.3 31.5 - 35.7 g/dL [facility] RDW 11.8 11.7 - 15.4 % [facility] Platelets 184 150 - 450 x10E3/uL [facility] Neutrophil Rel % 61 Not Estab. % [facility] Lymphocyte Rel % 27 Not Estab. % [facility] Monocyte Rel % 10 Not Estab. % [facility] Eosinophil Rel % 2 Not Estab. % [facility] Basophil Rel % 0 Not Estab. % [facility] Neutrophils Absolute 3.8 1.4 - 7.0 x10E3/uL [facility] Lymphocytes Absolute 1.7 0.7 - 3.1 x10E3/uL [facility] Monocytes Absolute 0.6 0.1 - 0.9 x10E3/uL [facility] Eosinophils Absolute 0.1 0.0 - 0.4 x10E3/uL [facility] Basophils Absolute 0.0 0.0 - 0.2 x10E3/uL [facility] Immature Granulocyte Rel % 0 Not Estab. % [facility] Immature Grans Absolute 0.0 0.0 - 0.1 x10E3/uL [facility] Blood 03/22/2022 3:24 PM EDT 03/23/2022 Narrative [facility] ([facility]) - 03/25/2022 6:09 AM EDT Performed at: 01 - [facility] [address] [place] [id number] Human Resources Office Manager: Krunal Lopez PhD, Phone: [phone] Sandy Rizvi MD LAB BLOOD ORDERABLES Final Result [facility] (AM[facility]ULATORY) [address] [place] [address], [place] [phone] [facility] [address] [place] [address], [place] [phone] from Last 3 Months or Most Recently Relevant to Health Maintenance Insurance [address] [address] MEDICAID Advance Directives * CPR (Attempt to Resuscitate) (Latest Code Status on File) Date Activated Date Inactivated Comments 11/05/2022 1:04 AM 11/07/2022 3:10 PM Question Answer Comments Code Status (Patient has no pulse and is not breathing): CPR (Attempt to Resuscitate) Medical Interventions (Patie nt has pulse or is breathing): Full * CPR (Attempt to Resuscitate) Date Activated Date Inactivated Comments 11/04/2022 10:09 PM 11/05/2022 1:04 AM Question Answer Comments Code Status (Patient has no pulse and is not breathing): CPR (Attempt to Resuscitate) Medical Interventions (Patie nt has pulse or is breathing): Full Support Level Of Support Discussed With: Patient Care Teams Produce Sorter Relationship Specialty Start Date End Date Ventura Corona MD [address] [place] [address] [place] [address] PCP - General Internal Medicine 10/21/22
--- OUTSIDE RECORDS SUMMARY | 2025-06-10 12:19 | XMS_ITS | Encounter Summary ---
[facility] Address [address] [place] [address] Care Team Providers Care Associate Financial Representative Name Role Phone Ventura Corona MD Primary Care Provider [phone] Encounter Details Date Type Department Care Team (Latest Contact Info) Description 05/07/2025 Travel Social History Tobacco Use Types Packs/Day Years Used Date Smoking Tobacco: Never Smokeless Tobacco: Never Alcohol Use Standard Drinks/Week Comments Never 0 [...] Brief Depression Severity Measure Score 0 03/08/2023 [place] Depression Scale Answer Date Recorded Retired [place] Depression Score 0 12/16/2022 Retired EPD Scale: [...] on file documented as of this encounter Functional Status documented as of this encounter Plan of Treatment Not on file documented as of this encounter Visit Diagnoses Not on filedocumented in this encounter Care Teams Associate Financial Representative Relationship Specialty Start Date End Date Ventura Corona MD [address] [place] [address] PCP - General Internal Medicine 10/21/22 documented as of this encounter
== END 2025-06-10 23:59 | disposition home or self-care (01) ==
LOC: LAB 12:17
PROVIDERS: PCP Pediatrics; Visit Provider Obstetrics & Gynecology
DX: Z34.90 Encounter for supervision of normal pregnancy, unspecified, unspecified trimester (principal)
CPT/HCPCS: 36415; 84144; 84702

== ENCOUNTER 2025-11-07 13:30 | Outpatient (CLI) | payer MEDICAID, SELFPAY ==
--- OUTSIDE RECORDS SUMMARY | 2025-09-11 03:43 | XMS_ITS | Encounter Summary ---
Author Organization [facility] Address [address] [place] [address] Care Team Providers Care Medicaid Specialist Name Role Phone Ventura Corona MD Primary Care Provider [phone] Reason for Visit * Reason Comments Headache Encounter Details Date Type Department Care Team (Late st Contact Info) Description 09/11/2025 4:43 AM EDT - 09/11/2025 6:16 AM EDT Emergency [facility] EMERGENCY DEPARTMENT [address] [place] [address] Fantasma Ortiz MD [address] [place] [id number] Acute non intractable tension-type headache (Primary Dx); Nausea Discharge Disposition: Home or Self Care Social History Tobacco Use Types Packs/Day Years Used Date Smoking Tobacco: Never Smokeless Tobacco: Never Alcohol Use Standard Drinks/Week Comments Yes 0 (1 standard drink = 0.6 oz pur e alcohol) socially AUDIT-C Answer Date Recorded Q1: How often [...] Brief Depression Severity Measure Score 0 03/08/2023 [place] Depression Scale Answer Date Recorded [place] Depression Scale Total 0 12/16/2022 The thought of harming myself has occurred to me . Unrecognized value 12/16/2022 Abuse Screen Answer Date Recorded Feels Unsafe at Home or Work/School no 09/11/2025 Feels Threatened by Someone no 08/21 Does Anyone Try to Keep You From Having Contact with Others or Doing Things Outside Your Home? no 09/11/2025 Physical Signs of Abuse Present no 09/11/2025 Housing Stability Answer Date Recorded Current Living [...] Sign Reading Time Taken Comments Blood Pressure 109/70 09/11/2025 6:15 AM EDT Pulse 72 09/11/2025 6:00 AM EDT Temperature 36.4 C (97.6 F) 09/11/2025 4:40 AM EDT Respiratory Rate 20 09/11/2025 4:40 AM EDT Oxygen Saturation 95% 09/11/2025 6:00 AM EDT Inhaled Oxygen Concentration - - Weight 86.2 kg (190 lb) 09/11/2025 4:40 AM EDT Height 157.5 cm (5' 2 ) 09/11/2025 4:40 AM EDT Body Mass Index 34.75 09/11/2025 4:40 AM EDT documented in this encounter Functional Status * Calculated C-SSRS Risk Score (Lifetime/Recent) Answer Date of Assessment Author No Risk Indicated 09/11/2025 4:41 AM EDT Robina Becerra RN * [place] Suicide Severity Rating Scale (Screener/Recent Self-Report) Question Answer Date of Assessment Author 1. Wish to be (Past 1 Month) No 025 4:41 AM EDT Robina Becerra RN 2. Non-Specific Active Suici tosha Thoughts (Past 1 Month) No 09/11/2025 4:41 AM EDT Robina Becerra , RN 6. Suicidal Behavior (Lifetime) No 5 4:41 AM EDT Robina Becerra RN documented as of this encounter Discharge Instructions * Discharge Instructions* Fantasma Ortiz MD - 09/11/2025 6:09 AM EDT Continue to take medications as directed. Maintain adequate hydration. Use acetaminophen or NSAIDs as discussed for pain control. Follow-up with your primary physician or specialist within the next 24 hours. Return to the emergency department for any change in symptoms. * Attachments The following attachments cannot be sent through Care Everywhere. * Tension Headache Adult Hrda-cu-Sftu (Polish) documented in this encounter Medications at Time of Discharge fluticasone (FLONASE) 50 MCG/ACT nasal sprayIndications :Seasonal allergic rhinitis due to pollen Administer 2 sprays into the nostril(s) as directed by provider Daily. 15.8 g 3 02/05/2025 loratadine (Claritin) 10 MG tabletIndication s:Seasonal allergic rhinitis due to pollen Take 1 tablet by mouth Daily. 30 tablet 1 02/05/2025 Vit-Fe Fumarate-FA ( Vitamin) 27-0.8 MG tablet Take 1 tablet by mouth Daily. 90 tablet 3 07/25/2025 promethazine (PHENERGAN) 25 MG tablet Take 1 tablet by mouth Every 8 (Eight) Hours As Needed for Nausea or Vomiting for up to 5 days. 15 tablet 09/11/2025 5 documented as of this encounter ED Notes * Fantasma Ortiz MD - 09/11/2025 6:16 AM EDT EMERGENCY DEPARTMENT ENCOUNTER Name: Jayson Adler Date of encounter: 09/11/2025 PCP: Ventura Corona MD : 2005 Room Number: HPI: Independent Historians: Patient History of Present Illness 20-year-old female presenting to the emergency department with a headache. Patient does have a history of migraines. Complaining of a dull headache has been going on for the last 3 days. Constant nature. Has been taking Tylenol without any relief. Has been nauseous but no vomiting. Denies any neck pain. No Fevers or chills. No chest pain or shortness of breath Review of Systems Constitutional: Negative for chills and fever. HENT: Negative for congestion, ear pain and sore throat. Eyes: Negative for visual disturbance. Respiratory: Negative for shortness of breath. Cardiovascular: Negative for chest pain. Gastrointestinal: Positive for nausea. Negative for abdominal pain. Genitourinary: Negative for difficulty urinating. Musculoskeletal: Negative for arthralgias. Skin: Negative for rash. Neurological: Positive for headaches. Negative for dizziness, weakness and numbness. Psychiatric/Behavioral: Negative for agitation. Review of prior external notes (non-ED) -and- Review of prior external [facility] Extensive review of the [id number] system as well as [facility] reveals no prior visit notes and no prior diagnostic studies available for review. and Previous Hemoglobin/Creatine Results 02/05/25 0912 07/25/25 1213 HGB 12.9 12.8 CREATININE 0.61 0.67 External laboratories, imaging as well as notes were reviewed personally by myself. All relevant studies were used to guide decision making. Date of previous record: 05/07/25 Source of note: PCP Summary: Patient was seen and evaluated for routine visit. I did review basic laboratory studies onfile as well as a previous chest x-ray and EKG. Records reviewed PAST MEDICAL HISTORY Past Medical History: Diagnosis Date Anxiety took Celexa prior to Chlamydia PAST SURGICAL HISTORY Past Surgical History: Procedure Laterality Date SECTION N/A 11/04/2022 Procedure: SECTION PRIMARY; Surgeon: Shaka Gilbert MD; Location: [facility]OR [facility]; Service: Obstetrics/Gynecology; Laterality: N/A; INTRAUTERINE DEVICE INSERTION 01/11/2023 TONSILLECTOMY WISDOM TOOTH EXTRACTION FAMILY HISTORY Family History Problem Relation Name Age of Onset No Known Problems Father No Known Problems Mother Diabetes Paternal Grandfather rachel nolasco Cancer Maternal Grandmother no Diabetes Maternal Grandmother no Stroke Maternal Grandmother no Cancer Maternal Grandfather Diabetes Maternal Grandfather Stroke Maternal Grandfather Breast cancer Neg Hx Ovarian cancer Neg Hx Uterine cancer Neg Hx Colon cancer Neg Hx SOCIAL HISTORY Social History Socioeconomic History Marital status: Single Number of children: 0 Tobacco Use Smoking status: Never Smokeless tobacco: Never Vaping Use Vaping status: Never Used Substance and Sexual Activity Alcohol use: Yes Comment: socially Drug use: Never Sexual activity: Yes Partners: Male control/protection: None ALLERGIES Allergies Allergen Reactions Sulfa Antibiotics Hives PHYSICAL EXAM I have reviewed the triage vital signs and nursing notes. ED Triage Vitals [09/11/25 0440] Temp Heart Rate Resp BP SpO2 97.6 ??F (36.4 ??C) 68 20 118/68 97 % Temp src Heart Rate Source Patient Position BP Location FiO2 (%) Oral Monitor Sitting Left arm -- INTERPRETATION: O2 sat 97% on Room Air, interpreted as normal. Telemetry rhythm strip interpreted as Normal Sinus rhythm rate of 68 Physical Exam Vitals and nursing note reviewed. Constitutional: General: She is not in acute distress. Appearance: She is not ill-appearing or toxic-appearing. Eyes: Conjunctiva/sclera: Conjunctivae normal. Cardiovascular: Rate and Rhythm: Normal rate and regular rhythm. Pulmonary: Effort: Pulmonary effort is normal. No respiratory distress. Abdominal: General: Abdomen is flat. There is no distension. Palpations: There is no mass. Tenderness: There is no abdominal tenderness. There is no guarding or rebound. Musculoskeletal: General: No deformity. Normal range of motion. Skin: General: Skin is warm. Findings: No rash. Neurological: General: No focal deficit present. Mental Status: She is alert and oriented to person, place, and time. Motor: No weakness. Results LAB RESULTS No results found for this visit on 09/11/25. RADIOLOGY No ED radiology results for this encounter. No orders to display ORDERS PLACED DURING THIS VISIT: No orders of the defined types were placed in this encounter. MEDICATIONS GIVEN IN ER Medications sodium chloride 0.9 % bolus 1,000 mL (0 mL Intravenous Stopped 09/11/25 0612) ondansetron (ZOFRAN) injection 4 mg (4 mg Intravenous Given 09/11/25 0502) ketorolac (TORADOL) injection 15 mg (15 mg Intravenous Given 09/11/25 0514) diphenhydrAMINE (BENADRYL) injection 25 mg (25 mg Intravenous Given 09/11/25 0515) dexAMETHasone (DECADRON) injection 10 mg (10 mg Intravenous Given 09/11/25 0514) PROCEDURES Procedures PROGRESS, DATA ANALYSIS, CONSULTS, AND MEDICAL DECISION MAKING All labs, radiology studies, and EKG's have been independently viewed and interpreted by me. Discussion below represents my analysis of pertinent findings related to patient's condition, differentialdiagnosis, treatment plan and final disposition. This is a 20 y.o. female presenting to the Emergency Department with a chief complaint of headache.Symptoms seem consistent with migraine versus tension headache. Neurologic exam normal. No meningismus. Overall, the patient is nontoxic. Afebrile. IV access was established in the patient. Placed on continuous telemetry monitoring. Given the patient's presentation, differential is broad and will require further evaluation. Workup initiated. My differential diagnosis includes but is not limited to :.Headache, migraine, tension headache, cephalgia, muscular headache, dehydration, sinusitis, URI ED Course as of 09/11/25 2244 Cathleen Sep 11, 2025 0608 On reevaluation, the patient's pain is improved. They are not having any worsening headache. There have been no episodes of witnessed vomiting in the Emergency Department. Given the history and physical exam, the headache is not consistent with CVA, subarachnoid hemorrhage, acute intracranial catastrophe, meningitis, encephalitis, intracranial abscess. Neurologic exam is nonfocal. The patient improved with migraine treatment here. I did discuss further evaluation with lumbar puncture, however, patient declined at this time as the symptoms have significantly improved. [JK] 0608 I had a discussion with the patient/family regarding diagnosis, diagnostic results, treatment plan, and medications. The patient/family indicated understanding of these instructions. I spent adequate time at the bedside prior to discharge necessary to discuss the aftercare instructions, givingpatient education, providing explanations of the results of our evaluations/findings, and my decision making to assure that the patient/family understand the plan of care. Time was allotted to answerquestions at that time and throughout the ED course. Patient is required to maintain timely follow up, as discussed. I also discussed the potential for the development of an acute emergent condition r equiring further evaluation, return to the ER, admission, or even surgical intervention. I encouraged the patient to return to the emergency department immediately for any concerns, worsening symptoms, new complaints, or if symptoms persist and they are unable to seek follow-up in a timely fashion.The patient/family expressed understanding and agreement with this plan Shared decision making: After full review of the patient's clinical presentation, review of any work-up including but not limited to laboratory studies and radiology obtained, I had a discussion with the patient. Treatment options were discussed as well as the risks, benefits and consequences. I discussed all findings with the patient and family members if available. During the discussion, treatment goals were understood by all as well as any misconceptions which were addressed with the patient. Ample time was given for any questions they may have had. They are in agreement with the treatment plan as well as final disposition. [JK] ED Course User Index [JK] Fantasma Ortiz MD Admission was considered but after careful review of the patient's presentation, physical examination, diagnostic results, and response to treatment the patient appears appropriate for discharge withoutpatient follow-up. OF 22:44 EDT VITALS: BP - 109/70 HR - 72 TEMP - 97.6 ??F (36.4 ??C) (Oral) O2 SATS - 95% DIAGNOSIS Final diagnoses: Acute non intractable tension-type headache Nausea DISPOSITION ED Disposition ED Disposition Discharge Condition Stable Comment -- Follow-up Information Ventura Corona MD. Call in 1 day. Specialty: Internal Medicine Contact information: [address] [place] [address] No current facility-administered medications on file prior to encounter. Current Outpatient Medications on File Prior to Encounter Medication Sig Dispense Refill fluticasone (FLONASE) 50 MCG/ACT nasal spray Administer 2 sprays into the nostril(s) as directed byprovider Daily. 15.8 g 3 loratadine (Claritin) 10 MG tablet Take 1 tablet by mouth Daily. 30 tablet 1 Vit-Fe Fumarate-FA ( Vitamin) 27-0.8 MG tablet Take 1 tablet by mouth Daily. 90 tablet 3 Please note that portions of this note were completed with a voice recognition program. Note Disclaimer: At [facility], we believe that sharing information builds trust and better relationships. You are receiving this note because you recently visited [facility]. It is possible you will see health information before a provider has talked with you about it. This kind of information can be easy to misunderstand. To help you fully understand what it means for your health, we urge you to discuss this note with your provider. Fantasma Ortiz MD 09/11/25 4022 documented in this encounter Plan of Treatment Not on file documented as of this encounter Visit Diagnoses Diagnosis Acute non intractable tension-type headache- Primary Nausea Nausea alone documented in this encounter Administered Medications Inactive Administered Medications - up to 3 most recent administrations Medication Order MAR Action Action Date Dose Rate Site dexAMETHasone (DECADRON) injection 10 mg 10 mg, Intravenous, Once, On Cathleen 09/11/25 at 0526, For 1 dose, If giving IV, may be pushed over a minimum of 1 minute. Given 09/11/2025 5:14 AM EDT 10 mg diphenhydrAMINE (BENADRYL) injection 25 mg 25 mg, Intravenous, Once, On Cathleen 09/11/25 at 0526, For 1 dose, 25 mg may be given IV push over less than 1 minute. Caution: Look alike/sound alike drug alert. This med may be ordered in other forms and routes. Before giving verify the last time the drug was given by any route/form. Given 09/11/2025 5:15 AM EDT 25 mg ketorolac (TORADOL) injection 15 mg 15 mg, Intravenous, Once, On Cathleen 09/11/25 at 0526, For 1 dose, Based on patient request - if ordered for moderate or severe pain, provider allows for administration of a medication prescribed for a lower pain scale. (BKC) If given for pain, use the following pain scale: Mild Pain = Pain Score of 1-3, CPOT 1-2 Moderate Pain = Pain Score of 4-6, CPOT 3-4 Severe Pain = Pain Score of 7-10, CPOT 5-8 Given 09/11/2025 5:14 AM EDT 15 mg ondansetron (ZOFRAN) injection 4 mg 4 mg, Intravenous, Once, On Cathleen 09/11/25 at 0508, For 1 dose, If multiple N/V medications ordered, use in the following order: Ondansetron, Prochlorperazine, Promethazine. Use PO unless patient refuses or patient unable to swallow. Given 09/11/2025 5:02 AM EDT 4 mg sodium chloride 0.9 % bolus 1,000 mL 1,000 mL, Intravenous, at 2,000 mL/hr, Administer over 0.5 Hours, Once, On Cathleen 09/11/25 at 0508, For 1 dose New Bag 09/11/2025 5:01 AM EDT 1,000 mL 2000 mL/hr sodium chloride 0.9 % flush 10 mL 10 mL, Intravenous, As Needed, Line Care, Starting on Cathleen 09/11/25 at 0452 documented in this encounter Active and Recently Administered Medications Times are shown in EDT. Scheduled Medication Order 09/09/2025 09/10/2025 09/11/2025 dexAMETHasone (DECADRON) injection 10 mg (COMPLETED) 10 mg, Intravenous, Once, On Cathleen 09/11/25 at 0526, For 1 dose, If giving IV, may be pushed over a minimum of 1 minute. 0514 (Given - Provid er: Tracey Villasenor RN) diphenhydrAMINE (BENADRYL) injection 25 mg (COMPLETED) 25 mg, Intravenous, Once, On Cathleen 09/11/25 at 0526, For 1 dose, 25 mg may be given IV push over less than 1 minute. Caution: Look alike/sound alike drug alert. This med may be ordered in other forms and routes. Before giving verify the last time the drug was given by any route/form. 0515 (Given - Provid er: Tracey Villasenor RN) ketorolac (TORADOL) injection 15 mg (COMPLETED) 15 mg, Intravenous, Once, On Cathleen 09/11/25 at 0526, For 1 dose, Based on patient request - if ordered for moderate or severe pain, provider allows for administration of a medication prescribed for a lower pain scale. (BKC) If given for pain, use the following pain scale: Mild Pain = Pain Score of 1-3, CPOT 1-2 Moderate Pain = Pain Score of 4-6, CPOT 3-4 Severe Pain = Pain Score of 7-10, CPOT 5-8 0514 (Given - Provid er: Tracey Villasenor RN) ondansetron (ZOFRAN) injection 4 mg (COMPLETED) 4 mg, Intravenous, Once, On Cathleen 09/11/25 at 0508, For 1 dose, If multiple N/V medications ordered, use in the following order: Ondansetron, Prochlorperazine, Promethazine. Use PO unless patient refuses or patient unable to swallow. 0502 (Given - Provid er: Tracey Villasenor RN) sodium chloride 0.9 % bolus 1,000 mL (COMPLETED) 1,000 mL, Intravenous, at 2,000 mL/hr, Administer over 0.5 Hours, Once, On Cathleen 09/11/25 at 0508, For 1 dose 0501 (New Bag - Prov ider: Tracey Villasenor RN)0612 (Stopped - Provider: Tracey Villasenor RN) PRN Medication Order 09/09/2025 09/10/2025 09/11/2025 sodium chloride 0.9 % flush 10 mL(Linked Group 1) 10 mL, Intravenous, As Needed, Line Care, Starting on Cathleen 09/11/25 at 0452 Linked Groups Order Group 1: Insert Peripheral IV (CANCELED) STAT, Once, On Cathleen 09/11/25 at 0453, For 1 occurrence And sodium chloride 0.9 % flush 10 mLJump to med 10 mL, Intravenous, As Needed, Line Care, Starting on Cathleen 09/11/25 at 0452 documented in this encounter Care Teams Medicaid Specialist Relationship Specialty Start Date End Date Ventura Corona MD [address] [place] [address] PCP - General Internal Medicine 10/21/22 documented as of this encounter
--- OUTSIDE RECORDS SUMMARY | 2025-11-07 13:37 | XMS_ITS | Encounter Summary ---
Author Organization [facility] yste Address [address] [place] [address] Care Team Providers Care Biofuels Technology Development Manager Name Role Phone Ventura Corona MD Primary Care Provider [phone] Encounter Details Date Type Department Care Team (Late st Contact Info) Description 07/29/2025 Results Follow-Up [facility] [address] [facility] [address] [place] [id number] Elise Troy Ximena, [employer] LIBRARIAN [address] [facility] [address] [place] [address] Social History Tobacco Use Types Packs/Day Years [...] Brief Depression Severity Measure Score 0 03/08/2023 [place] Depression Scale Answer Date Recorded [place] Depression Scale Total 0 12/16/2022 The thought [...] on file documented as of this encounter Plan of Treatment Not on file documented as of this encounter Visit Diagnoses Not on filedocumented in this encounter Care Teams Biofuels Technology Development Manager Relationship Specialty Start Date End Date Ventura Corona [facility] [address] [place] [address] PCP - General Internal Medicine 10/21/22 documented as of this encounter
--- OUTSIDE RECORDS SUMMARY | 2025-11-07 13:37 | XMS_ITS | Clinical Summary ---
Author Organization [facility] Address [address] [place] [address] Care Team Providers Care Access Manager Name Role Phone Ventura Corona MD Primary Care Provider [phone] Allergies Active Allergy Reactions Criticality Noted Date Comments Sulfa Antibiotics Hives Medium 04/28/2019 Medications loratadine (Claritin) 10 MG tabletIndicatio ns:Seasonal allergic rhinitis due to pollen Take 1 tablet by mouth Daily. 30 tablet 1 5 Active fluticasone (FLONASE) 50 MCG/ACT nasal sprayIndication s:Seasonal allergic rhinitis due to pollen Administer 2 sprays into the nostril(s) as directed by provider Daily. 15.8 g 3 5 Active Vit-Fe Fumarate-FA ( Vitamin) 27-0.8 MG tablet Take 1 tablet by mouth Daily. 90 tablet 3 5 Active Active Problems Problem Noted Date Diagnosed Date Other fatigue 02/05/2025 Assessment & Plan (05/07/2025 9:34 AM EDT): Nonspecific fatigue more of a burned-out sensation , not a muscular fatigue and not a sleepiness pattern. [place] it be most likely related to her [...] muscular fatigue and not a sleepiness pattern. [place] it be most likely related to her [...] seasonal allergic rhinitis. 10-year-old vaccinations given at [facility], including two-part hepatitis A series. Also to [...] planning to schedule Pap smear through her [facility] at soonest convenience. Right ovarian cyst 03/29/2023 [...] Encounters Date Type Department Care Team Description 09/11/2025 4:43 AM EDT - 09/11/2025 6:16 AM EDT Emergency [facility] [address] [place] [phone] Fantasma Ortiz MD Acute non intractable tension-type headache (Primary Dx); Nausea Discharge Disposition: Home or Self Care 09/11/2025 Travel from Last 3 Months Immunizations Immunization Administration Dates Next Due COVID-19 ([employer] Purple Cap Monovalent 12/07/2021 DTaP, Unspecified 06/02/2008, 7,2004,2003,2004 Hep A, 2 Dose 01/03/2018,06/30/2017 Hep B, Adolescent or Pediatric 2004,2003,2004 HiB 2004,2004,2004 Hpv9 01/03/2018,06/30/2017 IPV 06/02/2008, 5,2004,2003 MCV4 Unspecified 04/21/2015 MMR 06/02/2008,05/09/2007 Tdap 08/16/2022,04/21/2015 Varicella 06/02/2008,05/09/2007 Family History Medical History Relation Name Comments No Known Problems Father Cancer Maternal Grandfather Diabetes Maternal Grandfather Stroke Maternal Grandfather Cancer Maternal Grandmother no Diabetes Maternal Grandmother no Stroke Maternal Grandmother no No Known Problems Mother Diabetes Paternal Grandfather rachel nolasco Breast cancer [...] Given: No Alcohol Use Standard Drinks/Week Comments Yes 0 [...] Brief Depression Severity Measure Score 0 03/08/2023 Azle Depression Scale Answer Date Recorded Azle Depression Scale Total 0 12/16/2022 The thought [...] Mass Index 34.75 09/11/2025 4:40 AM EDT Plan of Treatment Health Maintenance Due Date Last Done Comments MENINGOCOCCAL B VACCINE (1 of 2 - Standard) 2020 INFLUENZA VACCINE 06/20/2025 LIPID PANEL 02/05/2026 02/05/2025 ANNUAL PHYSICAL 05/07/2026 05/07/2025 CHLAMYDIA SCREENING 07/25/2026 07/25/2025, 02/06/2024, 08/01/2022, Additional history exists Annual Gynecologic Pelvic and Breast Exam 07/26/2026 07/25/2025 PAP SMEAR 07/25/2028 07/25/2025 TDAP/TD VACCINES (3 - Td or Tdap) 08/16/2032 08/16/2022, 04/21/2015 MENINGOCOCCAL VACCINE Aged Out 04/21/2015 No kenzie aamir eligible based on patient's age to complete this topic HPV VACCINES Completed 01/03/2018, 06/30/2017 HEPATITIS C SCREENING Completed 03/22/2022 Pneumococcal Vaccine 0-49 Aged Out No longer eligible based on patient's age to complete this topic Procedures Procedure Name Priority Date/Time Associated Diagnosis Comments LIQUID-BASED PAP SMEAR WITH HPV GENOTYPING IF ASCUS, [facility]) Routine 07/25/2025 1:26 PM EDT Irregular periods Obesity (BMI 30-39.9) LIPID PANEL Routine 02/05/2025 9:12 AM EDT Mixed hyperlipidemia OBSTETRIC PANEL Routine 03/22/2022 3:24 PM EDT care, subsequent , first trimester from Last 3 Months or Most Recently Relevant to Health Maintenance Results * LIQUID-BASED PAP SMEAR WITH HPV GENOTYPING IF ASCUS ([facility]) (07/25/2025 1:26 PM EDT) Reference Lab Report 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 ---- Adequacy SATISFACTORY FOR EVALUATION Transformation zone is present. Partially obscuring bacteria is present. Source CERVICAL/ENDOCERVI LIAN LMP None provided CLINICAL HISTORY: Routine Irregular periods, Family planning The pap smear is a screening test with limited sensitivity, and false negative tests results can occur. ThinPrep Pap imagined by [employer] (AI assisted system). Screened by NIA MURPHY (ASCP) Neisseria Gonorrhoeae: Negative Chlamydia Trachomatis: Negative The Aptima Combo 2 assay is a target amplification nucleic acid probe test that utilizes target capture for the in vitro qualitative detection and differentiation of ribosomal RNA from Chlamydia trachomatis and Neisseria gonorrhoeae to aid in the diagnosis of chlamydial and gonococcal disease using the [employer] system. Aptima Trichomonas Vaginallis: Negative The Aptima Trichomonas vaginalis assay is an in vitro qualitative nucleic acid amplification test for the detection of ribosomal RNA to aid in the diagnosis of trichomoniasis. 07/28/2025 9:35 AM EDT [facility] ThinPrep Vial Cervix uteri structure / Unknown Collection / Unknown 07/25/2025 1:26 PM EDT 07/25/2025 1:26 PM EDT Elise Troy APRN PATHOLOGY/CYTOLOGY ORDERABLES Final Result [facility]
[address] [place] [address], * Lipid Panel (02/05/2025 9:12 AM EDT) Total Cholesterol 100 100 - 199 mg/dL [facility] Triglycerides 71 0 - 149 mg/dL [facility] HDL Cholesterol 43 >39 mg/dL [facility] VLDL Cholesterol Lian 15 5 - 40 mg/dL [facility] LDL Chol Calc (NIH) 42 0 - 99 mg/dL [facility] Blood 02/05/2025 9:12 AM EDT 02/05/2025 Comment:Blood Release to [facility] nery Lance [facility] ([facility]) - 02/06/2025 8:07 AM EDT Performed at: - [address] [id number] Lab Tech: Krunal Lopez PhD, Phone: [phone] Ventura Corona MD LAB BLOOD ORDERABLES Final Resul t Performing Organization Address City/[facility]/ZIP Co de Phone Number [facility] ([facility]) [address] [place] [address], [facility] [address] [place] [address], * Obstetric Panel (03/22/2022 3:24 PM EDT) [facility] Hepatitis B Surface Ag Negative Negative [facility] Hep C Virus Ab <0.1 0.0 - 0.9 s/co ratio [facility] Comment: Negative: < 0.8 Indeterminate: 0.8 - 0.9 Positive: > 0.9 The CDC recommends that a positive HCV antibody result be followed up with a HCV Nucleic Acid Amplification test (100343). RPR Non Reactive Non Reactive [facility] [...] 6:09 AM EDT Performed at: 01 - [facility] [address] [place], [place] [id number] Lab Tech: Krunal Lopez PhD, Phone: [phone] Sandy Rizvi MD LAB BLOOD ORDERABLES Final Result [facility] ([facility]) [address] [place] [address], [place] [phone] [facility] [address] [place] [address], from Last 3 Months or Most Recently Relevant to Health Maintenance Insurance MEDICAID Advance Directives * CPR (Attempt to [...] Of Support Discussed With: Patient Care Teams Access Manager Relationship Specialty Start Date End Date Ventura Corona MD [address] [place] [address] [place] [address] PCP - General Internal Medicine 10/21/22
--- OUTSIDE RECORDS SUMMARY | 2025-11-07 13:37 | XMS_ITS | Encounter Summary ---
Author Organization [facility] Address [address] [place] [address] Care Team Providers Care Interpretative Dancer Name Role Phone Ventura Corona MD Primary Care Provider Encounter Details Date Type Department Care Team (Latest Contact Info) Description 09/11/2025 Travel Social History Tobacco Use Types Packs/Day [...] Brief Depression Severity Measure Score 0 03/08/2023 Cromwell Depression Scale Answer Date Recorded Cromwell Depression Scale Total 0 12/16/2022 The thought [...] on filedocumented in this encounter Care Teams Interpretative Dancer Relationship Specialty Start Date End Date Ventura Corona MD [address] [place], [place] [address] PCP - General Internal Medicine 10/21/22 documented as of this encounter
--- NOTE | 2025-11-07 14:00 | US_ITS ---
PROCEDURE: US TRANSVAGINAL CLINICAL INDICATION: abnormal bleeding COMPARISON: No exams were available for comparison FINDINGS: Transvaginal sonographic images of the pelvis were obtained. UTERUS: 8.8 cm x 4.9 cmx 4.1cm anteverted with a combined endometrial thickness of 7.7mm. scar is seen. There is a defect in the scar along with fluid in the defect. There is fluid in the cervical canal. LEFT OVARY: 3.0cmx2.1cmx1.9cm with a volume of 6.5ml. There are multiple small peripheral follicles. RIGHT OVARY: 2.2cmx 2.5cmx3.2cm with a volume of 9.2ml. There is a follicle measuring 1.9 cm x 1.1 cm x 1.2 cm Both ovaries are seen and appear normal. Doppler flow to both ovaries are seen. There is no fluid in the cul-de-sac. IMPRESSION: 1. Anteverted, slightly enlarged uterus. The endometrium appears normal and measures 7.7 mm. 2. There is an anterior defect where the scar is located. There is fluid within this defect and this joins with the fluid in the cervical canal. 3. Both ovaries are seen and appear normal. The left ovary has multiple small follicles. The right ovary has a dominant follicle measuring 1.9 cm. 4. No fluid in the cul-de-sac. Dictated by: Michael Freed MD 11/07/2025 18:14 Michael Freed MD in OV 11/07/2025 18:14
[2025-11-07 14:37] LABS: Cholesterol 118 mg/dl (140-200); HDL Cholesterol 54 mg/dl (40-60); Triglycerides 109 mg/dl (30-150)
[2025-11-07 15:09] LABS: Thyroid Stimulating Hormone 1.38 uIU/mL (0.465-4.68)
[2025-11-07 15:37] LABS: Hemoglobin A1C 4.8 % (4.0-6.0)
[2025-11-09 07:07] LABS: FSH 3.1 mIU/mL (.); LH 8.4 mIU/mL (.); Testosterone,Total 29 ng/dL (13-71)
[2025-11-09 10:11] LABS: Insulin Level Total 11.2 uIU/mL (2.6-24.9)
== END 2025-11-07 23:59 | disposition home or self-care (01) ==
LOC: RAD 13:30
PROVIDERS: PCP Pediatrics; Visit Provider Obstetrics & Gynecology
DX: N85.4 Malposition of uterus (principal); N85.2 Hypertrophy of uterus; N85.8 Other specified noninflammatory disorders of uterus; R93.89 Abnormal findings on diagnostic imaging of other specified body structures; N83.02 Follicular cyst of left ovary; N83.01 Follicular cyst of right ovary
CPT/HCPCS: 36415; 76830; 80061; 82627; 82670; 83001; 83002; 83036; 83498; 83525; 84146; 84403; 84443; 84702